=== PATIENT | female | born 1940 | race Caucasian/White ===

== ENCOUNTER → 2016-09-10 | Outpatient (CLI) | payer OTHER, BC ==
[~2016-09-10] MED LIST: ACET-24 PO; ALBUAER2 INH; ASPEC81 PO; ASPI81TA28 PO; ATV1 PO; CHOL100010 PO; CYAN10005 PO; FORMCAP INH; HYDR25TA4 PO; IBUP-1050 PO; LACT1CAP6 PO; LACTCHW5 PO; LISI40TA PO; MELATAB2 PO; METO25TA3 PO; MISCCAP80 PO; NRN300 PO; NRN600 PO; ONDA8TAB6 PO; OXYC-643 PO; OXYSR10 PO; RXC5 PO; SIMV20TA2 PO; SYN112 PO; VENL75CA PO; ZCR40 PO
[2016-09-10 17:08] LABS: BASO % 0.4 %; BASO ABS # 0.03 K/uL (0-0.2); COMPLETE YES; EOS % 1.1 %; HEMATOCRIT 36.9 % (37-47); IG% 0.2 %; LYMPH ABS # 2.38 K/uL (1.2-3.4); MEAN CELL VOLUME 90.9 fL (80-100); MEAN CORPUSCULAR HGB CONC 33.1 g/dl (32-36); MEAN PLATELET VOLUME 10.2 fL (7.4-10.4); MONO % 10.4 %; NEUT % 59.9 %; PLATELET COUNT 236 K/uL (130-400); RED BLOOD COUNT 4.06 M/uL (4.2-5.4); WHITE BLOOD COUNT 8.49 K/uL (4.8-10.8)
[2016-09-10 17:49] LABS: BLOOD UREA NITROGEN 30 mg/dl (7-18); BUN/CREATININE RATIO 33.3 (10-20); CARBON DIOXIDE 28 mmol/L (21-32); CHLORIDE 104 mmol/L (98-107); GLUCOSE 85 mg/dl (70-99); POTASSIUM 3.8 mmol/L (3.5-5.1); SODIUM 141 mmol/L (136-145)
== END | disposition home or self-care (01) ==
LOC: C.LABBC 14:02
PROVIDERS: ATTEND Internal Medicine Geriatric Medicine
DX: F32.9 Major depressive disorder, single episode, unspecified (principal); E03.9 Hypothyroidism, unspecified; I10 Essential (primary) hypertension; E55.9 Vitamin D deficiency, unspecified; E78.5 Hyperlipidemia, unspecified; D64.9 Anemia, unspecified; D47.2 Monoclonal gammopathy

== ENCOUNTER 2017-01-02 08:40 | Inpatient (IN) | payer OTHER, BC ==
[2016-12-25 13:27] VITALS: BMI 35.0
--- NOTE | 2016-12-25 14:00 | PAT Medication Instructions ---
Service Date Dec 25, 2016. Current Home Medication List Albuterol (Ventolin Hfa), 2 PUFFS INH BID PRN for SOB/Wheezing Aspirin (Aspirin Ec), 81 MG PO QAM Cholecalciferol (Vitamin D), 2,000 INTER.UNIT PO QAM Cyanocobalamin (Vitamin B-12), 1,000 MCG PO DAILY Formoterol Fumarate (Foradil Aerolizer), 1 PUFF INH BID PRN for Shortness of Breath Hydrochlorothiazide (Hctz), 12.5 MG PO QAM Ibuprofen (Advil), 600 MG PO Q6H PRN for RN Lactase (Lactaid), 1-3 TABS PO QAM Levothyroxine (Synthroid *), 112 MCG PO QAM Lisinopril (Zestril), 40 MG PO QAM Lorazepam (Ativan *), 0.5 MG PO DAILY PRN Melatonin (Melatonin Maximum Strengt), 1 TAB PO HS PRN for Sleep Metoprolol Succinate (Toprol Xl), 25 MG PO QAM Oxycodone/Acetaminophen 5MG/325MG (Oxycodone/Acetaminophen 5MG/325MG), 0.5-1 TAB PO DAILY PRN for Pain Probiotic Product (Probiotic), 1 TAB PO QAM Simvastatin (Zocor), 20 MG PO QPM Venlafaxine Hcl (Effexor Xr), 150 MG PO QAM Medication Instructions For Your Scheduled Surgery - Check with surgeon for instructions: Ibuprofen (Advil), 600 MG PO Q6H PRN for RN - Hold the following medications the morning of surgery: Probiotic Product (Probiotic), 1 TAB PO QAM Lisinopril (Zestril), 40 MG PO QAM Lactase (Lactaid), 1-3 TABS PO QAM Hydrochlorothiazide (Hctz), 12.5 MG PO QAM Cholecalciferol (Vitamin D), 2,000 INTER.UNIT PO QAM Cyanocobalamin (Vitamin B-12), 1,000 MCG PO DAILY - Take the following medications the morning of surgery with a sip of water: Venlafaxine Hcl (Effexor Xr), 150 MG PO QAM Metoprolol Succinate (Toprol Xl), 25 MG PO QAM Oxycodone/Acetaminophen 5MG/325MG (Oxycodone/Acetaminophen 5MG/325MG), 0.5-1 TAB PO DAILY PRN for Pain (okay to take up to 4 hours prior to surgery if needed ) Lorazepam (Ativan *), 0.5 MG PO DAILY PRN (if needed) Levothyroxine (Synthroid *), 112 MCG PO QAM Formoterol Fumarate (Foradil Aerolizer), 1 PUFF INH BID PRN for Shortness of Breath (if needed) Albuterol (Ventolin Hfa), 2 PUFFS INH BID PRN for SOB/Wheezing (if needed) Aspirin (Aspirin Ec), 81 MG PO QAM - Take the following medications as scheduled the night before surgery: Simvastatin (Zocor), 20 MG PO QPM Oxycodone/Acetaminophen 5MG/325MG (Oxycodone/Acetaminophen 5MG/325MG), 0.5-1 TAB PO DAILY PRN for Pain (if needed) Melatonin (Melatonin Maximum Strengt), 1 TAB PO HS PRN for Sleep (if needed) Lorazepam (Ativan *), 0.5 MG PO DAILY PRN Formoterol Fumarate (Foradil Aerolizer), 1 PUFF INH BID PRN for Shortness of Breath (if needed) Albuterol (Ventolin Hfa), 2 PUFFS INH BID PRN for SOB/Wheezing (if needed) If you have any questions please call us at [phone] or [phone] or [phone]
--- NOTE | 2016-12-25 14:48 | DIAGNOSTIC IMAGING REPORT ---
CHEST PREADMISSION(PA/LAT) CLINICAL HISTORY: PAT preoperative evaluation COMPARISON STUDY: 11/15/2014 FINDINGS: Aortic stent is again noted. Heart top limits normal terms of size. Lungs are clear. Diaphragms smooth. IMPRESSION: No acute process. The above report was generated using voice recognition software. It may contain grammatical, syntax or spelling errors. Electronically signed by: Aidan Aviles M.D. 12/25/2016 2:46 PM Dictated Date/Time: 12/25/2016 2:44 PM
[2016-12-25 14:50] LABS: BUN/CREATININE RATIO 25.9 (10-20); CALCIUM 9.6 mg/dl (8.5-10.1); CREATININE 0.95 mg/dl (0.60-1.20); POTASSIUM 3.9 mmol/L (3.5-5.1)
[2016-12-25 14:51] LABS: BASO % 0.5 %; BASO ABS # 0.03 K/uL (0-0.2); COMPLETE YES; HEMATOCRIT 37.8 % (37-47); IG% 0.2 %; LYMPH % 25.4 %; LYMPH ABS # 1.56 K/uL (1.2-3.4); MEAN CELL VOLUME 92.9 fL (80-100); MEAN CORPUSCULAR HEMOGLOBIN 30.2 pg (25-34); MEAN CORPUSCULAR HGB CONC 32.5 g/dl (32-36); MONO % 7.3 %; NEUT % 65.6 %; PLATELET COUNT 214 K/uL (130-400); RED BLOOD COUNT 4.07 M/uL (4.2-5.4); WHITE BLOOD COUNT 6.13 K/uL (4.8-10.8)
[2016-12-25 14:53] LABS: PROTHROMBIN TIME (PATIENT) 10.7 SECONDS (9.0-12.0)
[2016-12-25 15:00] LABS: URINE APPEARANCE CLEAR (CLEAR); URINE BILIRUBIN NEG (NEG); URINE COLOR YELLOW; URINE NITRITE NEG (NEG); URINE PH 6.5 (4.5-7.5); URINE SPECIFIC GRAVITY 1.021 (1.000-1.030); UROBILINOGEN NEG (NEG); ZZUR CULT IF INDIC CLEAN CATCH NO
[2016-12-25 15:02] LABS: MANUAL MICROSCOPIC REQUIRED? NO; REVIEW REQ? NO
[2016-12-26 07:32] LABS: ESTIMATED AVERAGE GLUCOSE 126 mg/dl; HA1C FLAG Normal (Normal)
--- NOTE | 2017-01-01 20:14 | HISTORY & PHYSICAL EXAMINATION ---
DATE OF ADMISSION: 01/02/2017 CHIEF COMPLAINT: Right knee pain. HISTORY OF PRESENT ILLNESS: This is a 76-year-old female patient of Dr. Najera'gilbert complaining of chronic right knee pain, longstanding and now progressively getting worse. She has been diagnosed with end-stage osteoarthritis per clinical and radiographic exams. The patient has failed conservative treatment including intra-articular injections, the use of narcotics, anti-inflammatories, the use of cane and a walker. The patient has increased pain with weightbearing activities and her pain does interfere with her activities of daily living. PAST MEDICAL HISTORY: Irregular heartbeat, history of an aneurysm 7 years ago, osteoarthritis and dentures. SOCIAL HISTORY: She is a 2-pack per day smoker for 7 years. Nondrinker. PAST SURGICAL HISTORY: Hiatal hernia and aneurysm surgery. FAMILY HISTORY: Noncontributory. REVIEW OF SYSTEMS: The patient complains of chronic right knee pain. Otherwise denies any shortness of breath, chest pain, nausea, vomiting or any other joint complaints. ALLERGIES: No known drug allergies. MEDICATIONS: 1. Lorazepam 1 mg daily as needed. 2. Aspirin 81 mg daily. 3. Probiotic formula daily. 4. Foradil aerolizer 12 mcg inhalation every 12 hours. 5. Gabapentin 100 mg t.i.d. 6. Hydrochlorothiazide 25 mg 1/2 tablet daily. 7. Lactaid once daily. 8. Levothyroxine 112 mcg daily. 9. Lisinopril 40 mg daily. 10. Metoprolol 25 mg daily. 11. Naprosyn 440 mg daily p.r.n. 12. Simvastatin 20 mg at bedtime. 13. Valtrex 1 gram orally as needed per instruction. 14. Effexor 75 mg daily. PHYSICAL EXAMINATION: GENERAL: Well-developed and well-nourished 76-year-old female in no acute distress. She is alert and oriented x3 and pleasant. HEENT: Normocephalic and atraumatic. Extraocular motions are intact. Pupils are equal and reactive to light. HEART: Regular rate and rhythm, no murmurs appreciated. LUNGS: Clear. ABDOMEN: Soft and nontender. Bowel sounds present. EXTREMITIES: Right knee reveals mild effusion. She has limited range of motion of 0-125 degrees. Her ligaments are stable. She has medial joint line tenderness. She has crepitation with passive range of motion. She has 5/5 strength. NEUROLOGIC: Neurovascularly, she is intact in her right lower extremity. DIAGNOSES: Right knee end-stage osteoarthritis with a history of irregular heartbeat, aneurysms 7 years ago and dentures. PLAN: The patient was advised of her diagnoses. Indications, risks, benefits and postoperative course have all been reviewed. The patient wishes to proceed with a right total knee arthroplasty. Necessary consent forms, preoperative testing and clearances will be obtained. MARY
[2017-01-02] VITALS (8 sets, daily range): BP systolic 100–168; BP diastolic 47–88; PULSE 81–89; TEMP 36.2–36.7; O2SAT 93–99; Ht 162.6 cm; Wt 92.1 kg
[~2017-01-02] VITALS: Ht 162.6 cm; Wt 92.1 kg
[~2017-01-02 08:40] MED LIST changes: -ACET-24 PO; +ACETAMINOPHEN 500 MG TAB PO SCH; -ASPEC81 PO; +ATROPINE SULFATE 0.1 MG/ML 5ML SYR IV PRN; +BUPIVACAINE 0.25% 30 ML VIAL ONE; +BUPIVACAINE 0.5 % 5 MG/1 ML PF 10ML VIAL ONE; +CEFAZOLIN 2000 MG/60 ML D5W 60 ML IV SCH; +CeleBREX 200 MG CAP PO SCH; +DEXAMETHASONE 4 MG TAB PO SCH; +EpHEDrine SULFATE INJ 50 MG/ML AMP IV PRN; +FAMOTIDINE 20 MG TAB PO SCH; +GABAPENTIN 300 MG CAP PO SCH; -LACT1CAP6 PO; +LACTATED RINGER'S 1000ML 1,000 ML IV SCH; +LACTATED RINGER'S 1000ML 500 ML IV ONE; +LACTATED RINGER'S 1000ML IV SCH; +METOCLOPRAMIDE HCL 10 MG TAB PO SCH; -NRN300 PO; -NRN600 PO; -ONDA8TAB6 PO; -OXYSR10 PO; +ROPIVACAINE 5MG/ML 30 ML 150 MG, BUPIVACAINE/EPINEPHR 0.5% MPF 30 ML, KETOROLAC TROMETH... INFIL SCH; -RXC5 PO; -ZCR40 PO
[2017-01-02] MEDS ORDERED: MIDAZOLAM HCL 1 MG/ML 2ML VIAL ONE ×2 (10:14)
[2017-01-02] MEDS ORDERED: FENTANYL CITRATE INJ 50 MCG/1 ML 2 ML VIAL ONE (10:14)
[2017-01-02] MEDS ORDERED: POVIDONE-IODINE OP SOLN 30 ML BTL ONE (10:47)
[2017-01-02] MEDS ORDERED: BACITRACIN 50000 UNIT VIAL ONE (10:47)
[2017-01-02] MEDS ORDERED: ORTHO JOINT ANESTHETIC ONE (10:47)
--- NOTE | 2017-01-02 12:01 | History & Physical Bridge Note ---
H&P Re-Evaluation Bridge Note: I have examined the patient, reviewed the History & Physical and in the interval since the performance of the History & Physical I have noted the following changes of clinical significance: No changes noted
[2017-01-02] MEDS ORDERED: PROPOFOL IV EMULSION 10 MG/ML 20 ML VIAL IV ONE (12:27)
[2017-01-02] MEDS ORDERED: LIDOCAINE HCL 2% 2 ML VIAL (20MG/ML) ONE (12:27)
--- NOTE | 2017-01-02 13:49 | [facility] Post Operative Brief Note ---
Immediate Operative Summary Operative Date Jan 02, 2017. Pre-Operative Diagnosis Right Knee End-Stage Osteoarthritis Post-Operative Diagnosis Right Knee End-Stage Osteoarthritis Procedure(s) Performed Right Total Knee Arthroplasty Surgeon Dr. Najera Research Programmer Surgeon(s) TROY Govea Estimated Blood Loss 5 ml Findings grade 4 djd medial and lateral compartments Specimens A. Right Knee Bone and Tissue Drains 2 hemovac Anesthesia spinal orthomix regional Complication(s) None Disposition Recovery Room / PACU
[2017-01-02] MEDS ORDERED: SOD PHOSPHATE/SOD BIPHOSPHATE ENEMA 132 ML BTL PR PRN (14:15)
[2017-01-02] MEDS ORDERED: MoRPHine SULFATE 2 MG/ML CARP IV PRN (14:15)
[2017-01-02] MEDS ORDERED: MAGNESIUM HYDROXIDE SUSP 30 ML UDC PO PRN (14:15)
[2017-01-02] MEDS ORDERED: ZOLPIDEM TARTRATE 5 MG TAB PO PRN (14:15)
[2017-01-02] MEDS ORDERED: BISACODYL 10 MG SUPP PR PRN (14:15)
[2017-01-02] MEDS ORDERED: LORAZEPAM 1 MG TAB PO PRN (14:15)
[2017-01-02] MEDS ORDERED: ALBUTEROL HFA 8 GM INHALER INH PRN (14:15)
[2017-01-02] MEDS ORDERED: NON-FORMULARY MEDICATION (Melatonin (Melatonin Maximum Strengt) 1 TAB) PO PRN (14:15)
--- NOTE | 2017-01-02 14:40 | DIAGNOSTIC IMAGING REPORT ---
TWO VIEWS RIGHT KNEE CLINICAL HISTORY: Postoperative examination. FINDINGS: AP and crosstable lateral portable views of the right knee are obtained. A right knee arthroplasty is in near anatomic alignment. There has been undersurface remodeling of the patella. No acute fracture is seen. There are expected postoperative changes around the knee including skin clips, a surgical drain, soft tissue edema, and subcutaneous gas. IMPRESSION: Expected postoperative changes status post right knee arthroplasty. No acute fracture is seen. Electronically signed by: Dov An M.D. 01/02/2017 2:39 PM Dictated Date/Time: 01/02/2017 2:38 PM
[2017-01-02] MEDS ORDERED: MoRPHine SULFATE 4 MG/ML 1 ML CARP\\VIAL IV PRN (15:00)
--- NOTE | 2017-01-02 15:43 | Anesthesiology Progress Note ---
Anesthesia Post Op Note Date & Time Jan 02, 2017 at 15:43 Vital Signs Pain Intensity: 0 Vital Signs Past 12 Hours Date Time Temp Pulse Resp B/P (MAP) Pulse Ox O2 Delivery O2 Flow Rate FiO2 01/02/17 15:20 36.3 81 18 166/81 (109) 97 Nasal Cannula 2.0 01/02/17 15:00 37 81 16 143/80 98 Nasal Cannula 3 01/02/17 14:50 37 77 16 145/69 95 Nasal Cannula 3 01/02/17 14:35 37 81 16 164/66 95 Nasal Cannula 3 01/02/17 14:25 85 16 153/77 95 Nasal Cannula 3 01/02/17 14:15 84 16 161/87 99 Mask 10 01/02/17 14:07 37.2 89 16 162/80 99 Mask 10 01/02/17 09:33 36.5 89 20 149/73 93 Notes Mental Status: alert / awake / arousable, participated in evaluation Pt Amnestic to Procedure: Yes Nausea / Vomiting: adequately controlled Pain: adequately controlled Airway Patency, RR, SpO2: stable & adequate BP & HR: stable & adequate Hydration State: stable & adequate Neuraxial Anesthesia: was administered, sensory block is resolving Anesthetic Complications: no major complications apparent
[2017-01-02] MEDS: D5W AND 1/2NSS + 20MEQ KCL 1,000 ML IV SCH (16:34)
--- NOTE | 2017-01-02 18:44 | Medical Student: [facility] ---
Consultation Date of Consultation: Jan 02, 2017. Requesting Physician: Dr. Najera Attending Physician: Dr. Kraus Reason for Consultation: Post-op medical management History of Present Illness 1. Lorazepam 1 mg daily as needed. 2. Aspirin 81 mg daily. 3. Probiotic formula daily. 4. Foradil aerolizer 12 mcg inhalation every 12 hours. 5. Gabapentin 100 mg t.i.d. 6. Hydrochlorothiazide 25 mg 1/2 tablet daily. 7. Lactaid once daily. 8. Levothyroxine 112 mcg daily. 9. Lisinopril 40 mg daily. 10. Metoprolol 25 mg daily. 11. Naprosyn 440 mg daily p.r.n. 12. Simvastatin 20 mg at bedtime. 13. Valtrex 1 gram orally as needed per instruction. 14. Effexor 75 mg daily. Social History Smoking Status: Current Every Day Smoker (2ppd x 7years) History of Alcohol Use: No Drug Use: none Marital Status: Housing Status: lives with family Occupation Status: retired Allergies Coded Allergies: Bacitracin (Verified Allergy, Unknown, IRITATION TO EARS, 01/02/17) Varenicline (Verified Adverse Reaction, Severe, DEPRESSION, 01/02/17) PT SAYS THERE IS NOT ALLERGY Atorvastatin (Verified Adverse Reaction, Intermediate, MYALGIA, 01/02/17) PT SAYS THERE IS NOT ALLERGY Medications Current Inpatient Medications Medications (Trade) Dose Ordered Sig/Ky Route Start Time Stop Time Status Last Admin Dose Admin Lactated Ringer's 1,000 ml @ 60 mls/hr [id number] IV 01/02/17 06:00 01/02/17 22:39 Lactated Ringer's 1,000 ml @ 15 mls/hr Q24H IV 01/02/17 06:00 01/03/17 05:59 01/02/17 10:07 15 MLS/HR Ondansetron HCl (Zofran Inj) 4 mg ONE PRN IV 01/02/17 07:00 Albuterol (Ventolin Hfa Inhaler) 2 puffs BID PRN INH 01/02/17 14:15 02/01/17 14:14 Cholecalciferol (Vitamin D Tab) 2,000 inter.unit QAM PO 01/03/17 09:00 02/02/17 08:59 Cyanocobalamin (Vitamin B-12 Tab) 1,000 mcg DAILY PO 01/03/17 09:00 02/02/17 08:59 Hydrochlorothiazide (Hydrochlorothiazide Tab) 12.5 mg QAM PO 01/03/17 09:00 02/02/17 08:59 Levothyroxine Sodium (Synthroid Tab) 112 mcg DAILYBB PO 01/03/17 06:00 02/02/17 05:59 Lisinopril (Zestril Tab) 40 mg QAM PO 01/03/17 09:00 02/02/17 08:59 Lorazepam (Ativan Tab) 0.5 mg DAILY PRN PO 01/02/17 14:15 02/01/17 14:14 Metoprolol Succinate (Toprol Xl Tab) 25 mg QAM PO 01/03/17 09:00 02/02/17 08:59 Simvastatin (Zocor Tab) 20 mg QPM PO 01/02/17 21:00 02/01/17 20:59 Venlafaxine HCl (effeXOR EXTENDED REL CAP) 150 mg QAM PO 01/03/17 09:00 02/02/17 08:59 Miscellaneous Information (Order Awaiting Action) 1 ea QS N/A 01/02/17 16:00 02/01/17 15:59 Lactase (Lactaid Tab) 1-3 QAM PRN PO 01/03/17 09:00 02/02/17 08:59 Lactobacillus Acidophilus (Floranex Tab) 1 tab QAM PO 01/03/17 09:00 02/02/17 08:59 Potassium Chloride/Dextrose/ Sod Cl 1,000 ml @ 100 mls/hr Q10H IV 01/02/17 15:45 01/03/17 15:44 01/02/17 16:34 100 MLS/HR Oxycodone HCl (Roxicodone Immediate Rel Tab) 5 mg Q4H PRN PO 01/02/17 14:15 01/16/17 14:14 Oxycodone HCl (Oxycontin Tab) 10 mg Q12 PO 01/02/17 21:00 01/16/17 20:59 Morphine Sulfate (MoRPHine SULFATE INJ) 2 mg Q2H PRN IV 01/02/17 14:15 01/16/17 14:14 Acetaminophen (Tylenol Tab) 1,000 mg Q8 PO 01/02/17 22:00 02/01/17 21:59 Magnesium Hydroxide (Milk Of Magnesia Susp) 30 ml Q6H PRN PO 01/02/17 14:15 02/01/17 14:14 Bisacodyl (Dulcolax Supp) 10 mg DAILY PRN MD 01/02/17 14:15 02/01/17 14:14 Sodium Biphosphate/ Sodium Phosphate (Fleet Enema) 132 ml DAILY PRN MD 01/02/17 14:15 02/01/17 14:14 Docusate Sodium (coLACE CAP) 100 mg BID PO 01/02/17 21:00 02/01/17 20:59 Diphenhydramine HCl (Benadryl Cap) 25 mg Q8H PRN PO 01/02/17 14:15 02/01/17 14:14 Zolpidem Tartrate (Ambien Tab) 5 mg HSZ PRN PO 01/02/17 14:15 02/01/17 14:14 Multivitamins (Multivitamin Tab) 1 tab QAM PO 01/03/17 09:00 02/02/17 08:59 Ondansetron HCl (Zofran Inj) 4 mg Q6H PRN IV 01/02/17 14:15 02/01/17 14:14 Pantoprazole Sodium (Protonix Tab) 40 mg QAM PO 01/03/17 09:00 02/02/17 08:59 Tramadol HCl (Ultram Tab) 1 tablet for pain rating... Q4H PRN PO 01/02/17 14:15 02/01/17 14:14 Aspirin (Ecotrin Tab) 81 mg BID PO 01/02/17 21:00 02/01/17 20:59 Oxycodone HCl (Roxicodone Immediate Rel Tab) 10 mg Q4H PRN PO 01/02/17 14:45 01/16/17 14:44 Morphine Sulfate (MoRPHine SULFATE INJ) 4 mg Q2H PRN IV 01/02/17 15:00 01/16/17 14:59 Physical Exam Date Time Temp Pulse Resp B/P (MAP) Pulse Ox O2 Delivery O2 Flow Rate FiO2 01/02/17 18:24 36.2 88 17 112/73 (86) 99 Nasal Cannula 2.0 01/02/17 17:20 36.4 85 18 124/70 (88) 98 Nasal Cannula 2.0 01/02/17 16:58 Nasal Cannula 2.0 01/02/17 16:43 Nasal Cannula 2.0 01/02/17 16:25 36.6 86 17 160/88 (112) 96 Nasal Cannula 2.0 01/02/17 15:53 36.7 81 17 168/48 (88) 98 Nasal Cannula 2.0 01/02/17 15:20 36.3 81 18 166/81 (109) 97 Nasal Cannula 2.0 01/02/17 15:00 37 81 16 143/80 98 Nasal Cannula 3 01/02/17 14:50 37 77 16 145/69 95 Nasal Cannula 3 01/02/17 14:35 37 81 16 164/66 95 Nasal Cannula 3 01/02/17 14:25 85 16 153/77 95 Nasal Cannula 3 01/02/17 14:15 84 16 161/87 99 Mask 10 01/02/17 14:07 37.2 89 16 162/80 99 Mask 10 01/02/17 09:33 36.5 89 20 149/73 93
[2017-01-02] MEDS ORDERED: LORAZEPAM 0.5 MG TAB PO STA (20:20)
--- NOTE | 2017-01-02 20:20 | Medical Consult ---
Consultation Date of Consultation: Jan 02, 2017. Attending Physician: Prem Najera M.D. Reason for Consultation: Post op med mx History of Present Illness Mrs Pimentel is a 76 yo F with anxiety, HTN, and known AAA (previously repaired in [facility]) , who is day 0 s/p R TKA with Dr Najera. She denies any pain or concerns but is very anxious at the moment about her pain returning. She reports for anxiety she usually takes 1mg PO Ativan every week or so, and that Ambien gives her hallucinations. She is on Venlafaxine daily for anxiety. She denies any shortness of breath, chest pain, or palpitations. Past Medical/Surgical History Medical Problems: (1) Degenerative joint disease Status: Acute (2) Fractured fibula Status: Acute (3) Toe fracture Status: Acute Family History Gallbladder disease Heart disease Hypertension Kidney disease Kidney stones Social History Smoking Status: Former Smoker (Stopped after AAA repair, previously smoked 50 y ) Drug Use: none Marital Status: Housing Status: lives with family Occupation Status: retired Allergies Coded Allergies: Bacitracin (Verified Allergy, Unknown, IRITATION TO EARS, 01/02/17) Varenicline (Verified Adverse Reaction, Severe, DEPRESSION, 01/02/17) PT SAYS THERE IS NOT ALLERGY Atorvastatin (Verified Adverse Reaction, Intermediate, MYALGIA, 01/02/17) PT SAYS THERE IS NOT ALLERGY Home Medications Reported Home Medications Medications Dose Route/Sig Max Daily Dose Days Date Category Dose Instructions Zocor (Simvastatin) 20 Mg Tab 20 Mg PO QPM 12/25/16 Reported Advil (Ibuprofen) 200 Mg Tab 600 Mg PO Q6H PRN 12/25/16 Reported Probiotic (Probiotic Product) 1 Cap Cap 1 Tab PO QAM 12/25/16 Reported Vitamin D (Cholecalciferol) 1,000 Inter.unit Tab 2,000 Inter.unit PO QAM 10/09/15 Reported Vitamin B-12 (Cyanocobalamin) 1,000 Mcg Tab 1,000 Mcg PO DAILY 10/09/15 Reported TAKES ON OCC Oxycodone/Acetaminophen 5MG/325MG (Oxycodone/Acetaminophen) 1 Tab Tab 0.5-1 Tab PO DAILY PRN 09/27/15 Reported Lactaid (Lactase) 4,500 Unit Chw 1-3 Tabs PO QAM 09/27/15 Reported chew and swallow 1-3 tabs with first bite of milk food Ventolin Hfa (Albuterol) Aers 2 Puffs INH BID PRN 09/27/15 Reported Melatonin Maximum Strengt (Melatonin) 5 Mg Tab 1 Tab PO HS PRN 09/27/15 Reported Effexor Xr (Venlafaxine Hcl) 75 Mg Cap 150 Mg PO QAM 30 08/24/15 Reported Aspirin Ec (Aspirin) 81 Mg Tab 81 Mg PO QAM 08/24/15 Reported Hctz (Hydrochlorothiazide) 25 Mg Tab 12.5 Mg PO QAM 03/27/14 Reported Foradil Aerolizer (Formoterol Fumarate) Cap 1 Puff INH BID PRN 03/27/14 Reported Toprol Xl (Metoprolol Succinate) 25 Mg Tabcr 25 Mg PO QAM 01/26/12 Reported Ativan * (Lorazepam) 1 Mg Tab 0.5 Mg PO DAILY PRN 03/15/11 Reported Synthroid * (Levothyroxine Sodium) 0.112 Mg Tab 112 Mcg PO QAM 03/15/11 Reported Zestril (Lisinopril) 40 Mg Tab 40 Mg PO QAM 09/16/09 Reported Current Inpatient Medications Current Inpatient Medications Medications (Trade) Dose Ordered Sig/Ky Route Start Time Stop Time Status Last Admin Dose Admin Lactated Ringer's 1,000 ml @ 60 mls/hr [id number] IV 01/02/17 06:00 01/02/17 22:39 Lactated Ringer's 1,000 ml @ 15 mls/hr Q24H IV 01/02/17 06:00 01/03/17 05:59 01/02/17 10:07 15 MLS/HR Ondansetron HCl (Zofran Inj) 4 mg ONE PRN IV 01/02/17 07:00 Albuterol (Ventolin Hfa Inhaler) 2 puffs BID PRN INH 01/02/17 14:15 02/01/17 14:14 Cholecalciferol (Vitamin D Tab) 2,000 inter.unit QAM PO 01/03/17 09:00 02/02/17 08:59 Cyanocobalamin (Vitamin B-12 Tab) 1,000 mcg DAILY PO 01/03/17 09:00 02/02/17 08:59 Hydrochlorothiazide (Hydrochlorothiazide Tab) 12.5 mg QAM PO 01/03/17 09:00 02/02/17 08:59 Levothyroxine Sodium (Synthroid Tab) 112 mcg DAILYBB PO 01/03/17 06:00 02/02/17 05:59 Lisinopril (Zestril Tab) 40 mg QAM PO 01/03/17 09:00 02/02/17 08:59 Lorazepam (Ativan Tab) 0.5 mg DAILY PRN PO 01/02/17 14:15 02/01/17 14:14 Metoprolol Succinate (Toprol Xl Tab) 25 mg QAM PO 01/03/17 09:00 02/02/17 08:59 Simvastatin (Zocor Tab) 20 mg QPM PO 01/02/17 21:00 02/01/17 20:59 Venlafaxine HCl (effeXOR EXTENDED REL CAP) 150 mg QAM PO 01/03/17 09:00 02/02/17 08:59 Miscellaneous Information (Order Awaiting Action) 1 ea QS N/A 01/02/17 16:00 02/01/17 15:59 Lactase (Lactaid Tab) 1-3 QAM PRN PO 01/03/17 09:00 02/02/17 08:59 Lactobacillus Acidophilus (Floranex Tab) 1 tab QAM PO 01/03/17 09:00 02/02/17 08:59 Potassium Chloride/Dextrose/ Sod Cl 1,000 ml @ 100 mls/hr Q10H IV 01/02/17 15:45 01/03/17 15:44 01/02/17 16:34 100 MLS/HR Oxycodone HCl (Roxicodone Immediate Rel Tab) 5 mg Q4H PRN PO 01/02/17 14:15 01/16/17 14:14 Oxycodone HCl (Oxycontin Tab) 10 mg Q12 PO 01/02/17 21:00 01/16/17 20:59 Morphine Sulfate (MoRPHine SULFATE INJ) 2 mg Q2H PRN IV 01/02/17 14:15 01/16/17 14:14 Acetaminophen (Tylenol Tab) 1,000 mg Q8 PO 01/02/17 22:00 02/01/17 21:59 Magnesium Hydroxide (Milk Of Magnesia Susp) 30 ml Q6H PRN PO 01/02/17 14:15 02/01/17 14:14 Bisacodyl (Dulcolax Supp) 10 mg DAILY PRN [place] 01/02/17 14:15 02/01/17 14:14 Sodium Biphosphate/ Sodium Phosphate (Fleet Enema) 132 ml DAILY PRN [place] 01/02/17 14:15 02/01/17 14:14 Docusate Sodium (coLACE CAP) 100 mg BID PO 01/02/17 21:00 02/01/17 20:59 Diphenhydramine HCl (Benadryl Cap) 25 mg Q8H PRN PO 01/02/17 14:15 02/01/17 14:14 Zolpidem Tartrate (Ambien Tab) 5 mg HSZ PRN PO 01/02/17 14:15 02/01/17 14:14 Multivitamins (Multivitamin Tab) 1 tab QAM PO 01/03/17 09:00 02/02/17 08:59 Ondansetron HCl (Zofran Inj) 4 mg Q6H PRN IV 01/02/17 14:15 02/01/17 14:14 Pantoprazole Sodium (Protonix Tab) 40 mg QAM PO 01/03/17 09:00 02/02/17 08:59 Tramadol HCl (Ultram Tab) 1 tablet for pain rating... Q4H PRN PO 01/02/17 14:15 02/01/17 14:14 Aspirin (Ecotrin Tab) 81 mg BID PO 01/02/17 21:00 02/01/17 20:59 Oxycodone HCl (Roxicodone Immediate Rel Tab) 10 mg Q4H PRN PO 01/02/17 14:45 01/16/17 14:44 Morphine Sulfate (MoRPHine SULFATE INJ) 4 mg Q2H PRN IV 01/02/17 15:00 01/16/17 14:59 Review of Systems See HPI for pertinent positives & negatives. A total of 10 systems reviewed and were otherwise negative. Physical Exam Date Time Temp Pulse Resp B/P (MAP) Pulse Ox O2 Delivery O2 Flow Rate FiO2 01/02/17 19:25 36.5 85 18 100/61 (74) 94 Room Air 01/02/17 18:24 36.2 88 17 112/73 (86) 99 Nasal Cannula 2.0 01/02/17 17:20 36.4 85 18 124/70 (88) 98 Nasal Cannula 2.0 01/02/17 16:58 Nasal Cannula 2.0 01/02/17 16:43 Nasal Cannula 2.0 01/02/17 16:25 36.6 86 17 160/88 (112) 96 Nasal Cannula 2.0 01/02/17 15:53 36.7 81 17 168/48 (88) 98 Nasal Cannula 2.0 01/02/17 15:20 36.3 81 18 166/81 (109) 97 Nasal Cannula 2.0 01/02/17 15:00 37 81 16 143/80 98 Nasal Cannula 3 01/02/17 14:50 37 77 16 145/69 95 Nasal Cannula 3 01/02/17 14:35 37 81 16 164/66 95 Nasal Cannula 3 01/02/17 14:25 85 16 153/77 95 Nasal Cannula 3 01/02/17 14:15 84 16 161/87 99 Mask 10 01/02/17 14:07 37.2 89 16 162/80 99 Mask 10 01/02/17 09:33 36.5 89 20 149/73 93 General Appearance: WD/WN, + mild distress Head: normocephalic, atraumatic Eyes: normal inspection, PERRL ENT: hearing grossly normal Neck: supple, no JVD Respiratory/Chest: lungs clear, normal breath sounds, no respiratory distress Cardiovascular: regular rate, rhythm Abdomen/GI: soft Back: no CVA tenderness, no muscle spasm Extremities/Musculoskelatal: no calf tenderness, no pedal edema Neurologic/Psych: alert, normal mood/affect, oriented x 3 Skin: no rash Assessment & Plan 76 yo F with HTN and anxiety, day 0 s/p R TKA. Hypertension: Agree w/restarting anti-hypertensives tomorrow AM. Her recent BP' s have been well controlled. Anxiety: Primary team has restarted Ativan 0.5mg daily for as needed use. Will provide her with 0.5mg PO now. Continue Venlafaxine. Pain Mx: Per primary team DVT Prophylaxis: Aspirin 81mg BID started by primary team. Thank you for allowing us to participate in the care of Mrs. Pimentel. We will continue to follow. Resident Physician Supervision Note: Pt seen/examined independently. I discussed the case with the resident and agree with the findings and plan as documented in the note. Any exceptions or clarifications are listed here: 76 y/o F Hx HTN, anxiety - post R TKA - we are consulted for post-op anxiety issues OE AAO x 3 S1,2 R CTAB NT, ND No CCE P: Anxiety - cont Ativan and Venlafaxine additional dose Ativan provided HTN - restart HTN meds AM Documented By: Jaylen Saavedra Resident Tracking Resident Involvement: Resident Care Provided Care Provided: Adult [facility]
[2017-01-02] MEDS: DOCUSATE SODIUM 100 MG CAP PO SCH (20:49)
[2017-01-02] MEDS: OXYCODONE HCL 10 MG TABCR (OXYCONTIN) PO SCH (20:49)
[2017-01-02] MEDS: ASPIRIN 81 MG ECTAB PO SCH (20:50)
[2017-01-02] MEDS: SIMVASTATIN 20 MG TAB PO SCH (20:50)
[2017-01-02] MEDS: ACETAMINOPHEN 500 MG TAB PO SCH (22:22)
--- NOTE | 2017-01-03 00:20 | OPERATIVE REPORT ---
DATE OF OPERATION: 01/02/2017 HISTORY OF PRESENT ILLNESS: The patient is a 76-year-old female who presents with progressive unremitting pain in right knee but also has significant long-term pain in her left knee. She has had extensive conservative management. She was putting off any surgery on her knees due to other medical complications. She has been recently cleared to proceed with surgery. Her right knee is most symptomatic. Her radiographs demonstrate she has [id number] in medial compartment of both her knees with some tricompartment osteoarthritic changes in her right knee. Left knee appears to be more arthritic than her right knee, the right knee is more painful. PREOPERATIVE DIAGNOSIS: End-stage osteoarthritis, right knee. POSTOPERATIVE DIAGNOSIS: Same. PROCEDURE: Right total knee arthroplasty. SURGEON: Dr. Najera. RECREATION ACTIVITIES COORDINATOR: Aidan Jimenez PA-C. ANESTHESIA: Spinal sedation, adductor nerve block and Orthomix. OPERATIVE PROCEDURE: The patient was taken to the operating room and anesthetized under anesthesia as dictated. She was placed supine on the operating room table. Pneumatic tourniquet was placed about her right upper thigh. Right lower extremity was prepped and draped in sterile fashion. Her leg was elevated, exsanguinated with Esmarch bandage. Pneumatic tourniquet was raised to 300 mmHg. Exam demonstrates she had 0 through 125 degrees range of motion. No particular instability. A longitudinal incision was made across the anterior knee. Skin was incised sharply. Subcutaneous flaps were elevated. Incision was made into the medial retinaculum and extended up into the mid third of the quadriceps tendon and extended down to the medial tibial tubercle. Intraarticular findings demonstrated that she had tricompartmental DJD, but she was grade 4 lbtg-pa-[id number] in the lateral compartment, grade 4 [id number]-[id number] in the medial compartment. She had more of a varus knee. She also had some patellofemoral arthritis, grade 3. There was some bone loss in the medial compartment with flattening of the medial femoral condyle. The [place]! total knee arthroplasty system was used. To expose the knee, the infrapatellar fat pad was resected. The meniscal remnants were resected. The cruciate ligaments were resected. Fat pad over the anterior femur for placement of the component in that area was resected. Some of the lateral synovial bands were released. The femur was exposed. An intramedullary drill hole was made into the femoral canal. Guide jj was placed. Distal femoral cutting guide was adjusted to resect 10 mm of distal femur at 5-degree valgus cut. The femur was sized for a size 4 femoral component. She had a bit of an AP-ML mismatch, she was more of a 5 AP than a 4, but 5 would be oversized in medial lateral, so we chose to go with a 4. The cutting guide was externally rotated approximately 3 degrees of external rotation to match the epicondylar axis. Guide was pinned in position, and the anterior, posterior and chamfer cuts were made. Did have a minor notching of the anterior cortex to due to downsizing the femoral component. The 4-in-1 cutting block was used to make the anterior, posterior and chamfer cuts and then attention was taken to the patella. We did a subperiosteal peel lateral release around the patella. The patella width was measured and width was reproduced using a 3 tibia, 9 mm patellar component. All 3 drill holes were made for the component. The excess lateral facet was beveled off to prevent any impingement. Then, attention was taken to the tibia which was subluxed and the external tibial cutting guide was used to make a perpendicular cut to the long axis of the tibia. It was noted that she did have fairly significant osteoporosis. At this time, we used the lamina branch associate teller to assess ligamentous balance in extension and flexion, ligaments were balanced. Then, the tibia was exposed and the 3 primary tibial baseplate trial was externally rotated in line with the tibial tubercle, was pinned in position, the punch for stem was used. Then, the 4 notch cutting guide was centered and the notch cut was made. Then, the 4 femoral trial was inserted with a good fit. Then, we tried polyethylene trials and a 13 gave the best balance of ligaments through full range of motion and the patella was noted to track centrally. Trials were removed. The anesthetic Orthomix cocktail was injected per protocol. The knee was copiously irrigated with pulsatile lavage saline solution, no antibiotic used. The final components were then cemented with Simplex cement. Final components were the 4 Triathlon posterior stabilized right femoral component, the 3 primary Triathlon baseplate, the 3 x 13 mm X3 poly insert, posterior stabilized, and the S33 x 9 mm X3 poly patella. All excess cement was cleared. Knee was kept in extension until the cement had hardened. Betadine soak was used per protocol at this time. Then, this was irrigated out with normal saline solution. Two Hemovac drains were placed. The quadriceps tendon and medial retinaculum were closed with interrupted [id number] #1 Vicryl sutures. The subcutaneous tissues were then closed with interrupted 2-0 Vicryl, skin closed with hollie, and a superficial wound VAC was placed. Aidan Jimenez PA-C, was my assistant football coach, he functioned as assistant football coach for the entire procedure. He assisted in soft tissue retraction, instrument management and assisted in the closure and will participate in postoperative care of the patient. I attest to the content of the Intraoperative Record and any orders documented therein. Any exception s are noted below.
[2017-01-03] MEDS: OXYCODONE HCL IR 5 MG TAB (IMMEDIATE RELEASE) PO PRN ×4 (01:27→20:47)
[2017-01-03] MEDS: D5W AND 1/2NSS + 20MEQ KCL 1,000 ML IV SCH ×2 (01:27→12:50)
[2017-01-03 03:33] VITALS: BP 110/66; PULSE 88; TEMP 36.6; O2SAT 93
[2017-01-03] MEDS: TRAMADOL HCL 50 MG TAB PO PRN (04:08)
[2017-01-03] MEDS: ACETAMINOPHEN 500 MG TAB PO SCH ×3 (05:56→21:26)
[2017-01-03] MEDS: LEVOTHYROXINE 112 MCG TAB PO SCH (05:56)
[2017-01-03 06:03] LABS: HEMATOCRIT 27.4 % (37-47); MEAN CELL VOLUME 93.5 fL (80-100); MEAN CORPUSCULAR HEMOGLOBIN 29.4 pg (25-34); MEAN CORPUSCULAR HGB CONC 31.4 g/dl (32-36); MEAN PLATELET VOLUME 9.3 fL (7.4-10.4); PLATELET COUNT 166 K/uL (130-400); RED BLOOD COUNT 2.93 M/uL (4.2-5.4); WHITE BLOOD COUNT 9.62 K/uL (4.8-10.8)
[2017-01-03 06:43] LABS: BUN/CREATININE RATIO 30.6 (10-20); CALCIUM 8.1 mg/dl (8.5-10.1); CREATININE 0.93 mg/dl (0.60-1.20); POTASSIUM 4.1 mmol/L (3.5-5.1)
[2017-01-03 07:27] VITALS: BP 108/66; PULSE 86; TEMP 36.7; O2SAT 93
--- NOTE | 2017-01-03 08:14 | Orthopedic Progress Note ---
Orthopedic Progress Note Date of Service Jan 03, 2017. Subjective Post OP Day: 1 Reports: feeling well, pain controlled w PO medications, Denies: complaints, chest pain, SOB, nausea / vomiting, light headedness, calf pain Additional Notes: Hgb 8.6 Objective calves soft nontender, N/V intact, capillary refill less than 2 sec., dressing C /D/I, A&O x3, toes mobile Date Time Temp Pulse Resp B/P (MAP) Pulse Ox O2 Delivery O2 Flow Rate FiO2 01/03/17 07:27 36.7 86 17 108/66 (80) 93 Room Air 01/03/17 07:20 Room Air 01/03/17 03:33 36.6 88 16 110/66 (81) 93 Room Air 01/02/17 23:30 Room Air 01/02/17 23:12 36.6 84 16 125/47 (73) 94 Room Air 01/02/17 19:25 36.5 85 18 100/61 (74) 94 Room Air 01/02/17 18:24 36.2 88 17 112/73 (86) 99 Nasal Cannula 2.0 01/02/17 17:20 36.4 85 18 124/70 (88) 98 Nasal Cannula 2.0 01/02/17 16:58 Nasal Cannula 2.0 01/02/17 16:43 Nasal Cannula 2.0 01/02/17 16:25 36.6 86 17 160/88 (112) 96 Nasal Cannula 2.0 01/02/17 15:53 36.7 81 17 168/48 (88) 98 Nasal Cannula 2.0 01/02/17 15:20 36.3 81 18 166/81 (109) 97 Nasal Cannula 2.0 01/02/17 15:00 37 81 16 143/80 98 Nasal Cannula 3 01/02/17 14:50 37 77 16 145/69 95 Nasal Cannula 3 01/02/17 14:35 37 81 16 164/66 95 Nasal Cannula 3 01/02/17 14:25 85 16 153/77 95 Nasal Cannula 3 01/02/17 14:15 84 16 161/87 99 Mask 10 01/02/17 14:07 37.2 89 16 162/80 99 Mask 10 01/02/17 09:33 36.5 89 20 149/73 93 Laboratory Results 24 Hours: Test 01/03/17 05:43 Hematocrit 27.4 % Hemoglobin 8.6 g/dL Assessment & Plan Assessment: POD #1, Rt TKA Plan: PT/ OT DVT proph- ASA D/C plans- OPPT As per medicine Inhouse Planning Pain Management: Oxycontin, Morphine, PO Tylenol, Oxy IR DVT Prophylaxis: TEDs, SCDs, ASA Discharge Planning Discharge Planning: home with oppt Pain Management: Oxycontin, PO Tylenol, Oxy IR DVT Prophylaxis: TEDs, ASA Therapy: Physical Therapy, Occupational Therapy
--- NOTE | 2017-01-03 08:28 | Anesthesiology Progress Note ---
Anesthesia Post Op Note Date & Time Jan 03, 2017 at 08:28 Vital Signs Pain Intensity: 3 Vital Signs Past 12 Hours Date Time Temp Pulse Resp B/P (MAP) Pulse Ox O2 Delivery O2 Flow Rate FiO2 01/03/17 07:27 36.7 86 17 108/66 (80) 93 Room Air 01/03/17 07:20 Room Air 01/03/17 03:33 36.6 88 16 110/66 (81) 93 Room Air 01/02/17 23:30 Room Air 01/02/17 23:12 36.6 84 16 125/47 (73) 94 Room Air Notes Mental Status: alert / awake / arousable Pt Amnestic to Procedure: Yes Pain: adequately controlled Airway Patency, RR, SpO2: stable & adequate BP & HR: stable & adequate Hydration State: stable & adequate Neuraxial Anesthesia: sensory block resolved
--- NOTE | 2017-01-03 08:37 | Clinical Documentation Query ---
CLINICAL DOCUMENTATION QUERY 76-y/o female who has undergone cemented right TKR. This patient has experienced a >3g/dl drop in Hgb since surgery. In your clinical opinion is this patient being managed for: ( ) Acute blood loss anemia ( ) Other explanation of clinical findings (Please Explain) ( ) Unable to determine (Please Define) ( ) Need to Discuss ( ) Not Agree The medical record reflects the following clinical findings, treatment, and risk factors. Clinical Indicators: Hgb 8.6, Hct 27.4, relative hypotension (BP 100's/60's) Treatment: daily CBC, IVF's, medical consult, Risk Factors: Age, major orthopedic surgery Please clarify and document your clinical opinion in the progress notes and discharge summary. Terms such as "probable", "suspected", "likely", "questionable", "possible", or "still to be ruled out" are acceptable. IF IN AGREEMENT, YOU MUST DOCUMENT ABOVE DIAGNOSTIC STATEMENT IN DAILY PROGRESS NOTES AND DISCHARGE SUMMARY. This document is not part of the patient's record. Thank You, Shashank Boateng, RN [phone]
--- NOTE | 2017-01-03 08:40 | Clinical Documentation Query ---
CLINICAL DOCUMENTATION QUERY 76-y/o female who has undergone cemented right TKR. This patient has experienced a >3g/dl drop in Hgb since surgery. In your clinical opinion is this patient being managed for: ( x ) Acute blood loss anemia ( ) Other explanation of clinical findings (Please Explain) ( ) Unable to determine (Please Define) ( ) Need to Discuss ( ) Not Agree The medical record reflects the following clinical findings, treatment, and risk factors. Clinical Indicators: Hgb 8.6, Hct 27.4, relative hypotension (BP 100's/60's) Treatment: daily CBC, IVF's, medical consult, Risk Factors: Age, major orthopedic surgery Please clarify and document your clinical opinion in the progress notes and discharge summary. Terms such as "probable", "suspected", "likely", "questionable", "possible", or "still to be ruled out" are acceptable. IF IN AGREEMENT, YOU MUST DOCUMENT ABOVE DIAGNOSTIC STATEMENT IN DAILY PROGRESS NOTES AND DISCHARGE SUMMARY. This document is not part of the patient's record. Thank You, Shashank Boateng, RN [phone]
[2017-01-03] MEDS: HYDROCHLOROTHIAZIDE 25 MG TAB PO SCH (08:57)
[2017-01-03] MEDS: METOPROLOL SUCC 25MG EXT REL TAB PO SCH (08:57)
[2017-01-03] MEDS: CYANOCOBALAMIN 500 MCG TAB (VIT B-12) PO SCH (08:58)
[2017-01-03] MEDS: MULTIVITAMIN TAB PO SCH (08:58)
[2017-01-03] MEDS: LACTOBACILLUS ACIDOPHILUS (FLORANEX) TAB PO SCH (08:58)
[2017-01-03] MEDS: LISINOPRIL 40 MG TAB PO SCH (08:58)
[2017-01-03] MEDS: CHOLECALCIFEROL 1000 INTER.UNIT TAB PO SCH (08:58)
[2017-01-03] MEDS: VENLAFAXINE HCL XR 75 MG CAPXR PO SCH (08:58)
[2017-01-03] MEDS: PANTOprazole SOD 40 MG TAB PO SCH (08:58)
[2017-01-03] MEDS: ASPIRIN 81 MG ECTAB PO SCH ×2 (08:59→20:45)
[2017-01-03] MEDS: DOCUSATE SODIUM 100 MG CAP PO SCH ×2 (08:59→20:45)
[2017-01-03] MEDS ORDERED: LACTASE 3000 UNIT TAB PO PRN (09:00)
[2017-01-03] MEDS: OXYCODONE HCL 10 MG TABCR (OXYCONTIN) PO SCH ×3 (09:00→20:46)
[2017-01-03] MEDS: ONDANSETRON INJ 2 MG/ML 2 ML VIAL IV PRN ×2 (09:06→09:08)
[2017-01-03 10:25] VITALS: BP 122/72
--- NOTE | 2017-01-03 10:28 | Family Medicine Progress Note ---
Progress Note Date of Service Jan 03, 2017. Subjective Pt evaluation today including: conversation w/ patient The patient was seen and examined at bedside. No acute overnight events. s/o R TKR yesterday. Pt usually takes 0.5mg PRN daily for anxiety - she takes approximately 3-4 pills per week. She got a does yesterday evening and again at 3am per night resident. Patient is resting comfortably in bed. She is up and sitting to bedside. She denies any pain in her knee or extremities. She has a drain from the knee draining sangiounous fluid. ASA 81mg BID has been started for DVT prophylaxis. Eating and urinating well. Plan of care was described to the patient and all questions were answered. Constitutional: No fever, No chills, No sweats, No weight loss ENT: No hearing loss Respiratory: No cough, No sputum, No wheezing, No shortness of breath, No dyspnea on exertion Cardiovascular: No chest pain Abdomen: No pain, No nausea, No vomiting, No diarrhea Female : No dysuria, No hematuria Objective Physical Exam General Appearance: WD/WN, no apparent distress Respiratory/Chest: chest non-tender, lungs clear, normal breath sounds, no respiratory distress, no accessory muscle use Cardiovascular: regular rate, rhythm, no edema, no gallop, no JVD, no murmur Abdomen: normal bowel sounds, non tender, soft, no organomegaly, no pulsatile mass Extremities: normal range of motion, non-tender, no pedal edema, no calf tenderness, + pertinent finding (dressing on right knee- defer to surgeon for daily wound checks, knee non tender, FROM, pt is ambulating with the assistance of a walker slowly. ) Neurologic/Psychiatric: alert, normal mood/affect, oriented x 3 Skin: no rash Assessment and Plan 76F with a PMHx of HTN, anxiety and ruptured aortic aneurysm s/p R Total Knee Replacement, Post Op Day #1. Total Knee Replacement Pt is already ambulating to chair with walker. Wound care per primary surgeon. (Dr. Najera) PT and OT on board. Pain control with: * Tylenol 1g TID PRN. * Ultram Q4PRN * Oxycodone 5mg Q4H PO PRHN or Oxycodone 10mg BID PRN * Morphine 2mg vs 4mg IV Q4PRN Acute Blood Loss Anemia Hgb 12.3-->8.6 IVF will end this afternoon. Resuming diet. Resuming home Vit B12. Will monitor with daily CBCs. Hypertension MAP in the 80s this morning. Will resume home HTN meds - * HCTZ 12.5mg daily * Lisinopril 40mg daily. Continue to monitor. Anxiety Continue home Ativan 0.5mg PRN daily Continue Venlafaxine 150mg QAM. Will add on 0.5mg PO PRN QHS for anxiety. Will monitor usage. Hypothyroid Resume home dose of Synthroid 112mcg daily. H/o ruptured Aortic Aneurysm ASA has been increased to 81mg BID per primary team, home dose is 81mg daily. Continue home med Toprol XL 25mg QAM. Continue zocor 20mg daily Asthma/COPD documented history Albuterol 2puffs Q4H PRN for SOB GERD: PPI 40mg daily. DVT Prophylaxis: ASA as above and early ambulation, PT and OT on board. Constipation: Docusate 100mg BID FULL CODE Resident Involvement: Resident Care Provided Care Provided: Adult Hospital Medicine Reviewed: Pt Seen/Exam by Me History no new concerns Constitutional: denies: fever Respiratory: negative: short of breath Cardiovascular: denies chest pain Gastrointestinal/Abdominal: negative: abdominal pain General Appearance: no apparent distress Respiratory: lungs clear, no respiratory distress Cardiovascular: regular rate, rhythm Extremities: other (right knee dressing +) Neurologic/Psychiatric: alert, oriented x 3 Skin Characteristics: warm/dry Assessment/Plan Resident Physician Supervision Note: I was present with Dr. De Dios in bedside. I verified the samano history and physical, reviewed labs and image studies, discussed the case with the resident and agree with the findings and care plan.
[2017-01-03 11:08] VITALS: BP 133/72; PULSE 84; TEMP 36.6; O2SAT 96
[2017-01-03 15:10] VITALS: BP 129/82; PULSE 85; TEMP 36.7; O2SAT 92
[2017-01-03] MEDS ORDERED: LORAZEPAM 0.5 MG TAB PO PRN (18:00)
[2017-01-03] MEDS: SIMVASTATIN 20 MG TAB PO SCH (21:14)
[2017-01-03 22:57] VITALS: BP 119/72; PULSE 79; TEMP 36.7; O2SAT 92
[2017-01-04] MEDS: OXYCODONE HCL IR 5 MG TAB (IMMEDIATE RELEASE) PO PRN ×2 (03:56→13:56)
[2017-01-04] MEDS: ONDANSETRON INJ 2 MG/ML 2 ML VIAL IV PRN ×2 (05:25→15:11)
[2017-01-04 06:01] LABS: HEMATOCRIT 28.5 % (37-47); MEAN CELL VOLUME 93.8 fL (80-100); MEAN CORPUSCULAR HEMOGLOBIN 29.9 pg (25-34); MEAN CORPUSCULAR HGB CONC 31.9 g/dl (32-36); MEAN PLATELET VOLUME 9.7 fL (7.4-10.4); PLATELET COUNT 178 K/uL (130-400); RED BLOOD COUNT 3.04 M/uL (4.2-5.4); WHITE BLOOD COUNT 6.78 K/uL (4.8-10.8)
[2017-01-04] MEDS: LEVOTHYROXINE 112 MCG TAB PO SCH (06:22)
[2017-01-04] MEDS: ACETAMINOPHEN 500 MG TAB PO SCH ×3 (06:23→21:26)
[2017-01-04 06:43] LABS: BUN/CREATININE RATIO 27.8 (10-20); CALCIUM 8.6 mg/dl (8.5-10.1); CREATININE 0.98 mg/dl (0.60-1.20); POTASSIUM 4.2 mmol/L (3.5-5.1)
[2017-01-04 07:12] VITALS: BP 109/63; PULSE 77; TEMP 36.6; O2SAT 92
--- NOTE | 2017-01-04 07:53 | Orthopedic Progress Note ---
Orthopedic Progress Note Date of Service Jan 04, 2017. Subjective Post OP Day: 2 Reports: pain controlled w PO medications, Denies: chest pain, SOB, nausea / vomiting, light headedness, calf pain Additional Notes: Patient states she is feeling more tired today, did fair in PT, 100 ft, yesterday. Had some wheezing per therapist's note, is now on 2L of O2. Hgb 9.1, BP stable. Objective calves soft nontender, N/V intact, capillary refill less than 2 sec., dressing C /D/I, A&O x3, toes mobile Prevena in tact. Date Time Temp Pulse Resp B/P (MAP) Pulse Ox O2 Delivery O2 Flow Rate FiO2 01/04/17 07:12 36.6 77 19 109/63 (78) 92 Nasal Cannula 2.0 01/03/17 23:20 Room Air 01/03/17 22:57 36.7 79 16 119/72 (88) 92 Room Air 01/03/17 15:20 Room Air 01/03/17 15:10 36.7 85 18 129/82 (98) 92 Room Air 01/03/17 11:08 36.6 84 17 133/72 (92) 96 Room Air 01/03/17 10:25 122/72 (89) Laboratory Results 24 Hours: Test 01/04/17 05:39 Hematocrit 28.5 % Hemoglobin 9.1 g/dL Assessment & Plan Assessment: POD #2, Rt TKA Plan: PT/ OT DVT proph- ASA D/C plans- OPPT likely Saturday. As per medicine Monitor O2 sats and advance PT today. Inhouse Planning Pain Management: Oxycontin, Morphine, PO Tylenol, Oxy IR DVT Prophylaxis: TEDs, SCDs, ASA Discharge Planning Discharge Planning: home with oppt Pain Management: Oxycontin, PO Tylenol, Oxy IR DVT Prophylaxis: TEDs, ASA Therapy: Physical Therapy, Occupational Therapy
--- NOTE | 2017-01-04 07:56 | Discharge Instructions ---
Discharge Instructions Date of Service Jan 04, 2017. Admission Reason for Admission: Right Knee Degenerative Joint Disease Discharge Discharge Diagnosis / Problem: Right TKA Discharge Goals Goal(s): Improve function Activity Recommendations Activity Limitations: as noted below . Instructions / Follow-Up Instructions / Follow-Up ACTIVITY RECOMMENDATIONS: SELF CARE INSTRUCTIONS AFTER TOTAL KNEE REPLACEMENT A. You may need to continue a physical therapy program after discharge from the hospital. There are several options available to you. Your doctor will assist you in selecting the best one for you. 1. An out-patient facility 2 to 3 times a week for therapy or home therapy. 2. Continue working on all exercises taught to you in the hospital. Your goals should be to increase bending of your knee to 90 degrees and beyond and to fully straighten your knee. B. You may progress at your own pace from walking with a walker or crutches to a cane; then to no assistive devices. C. Make walking a part of your daily routine. Be up as much as comfortable with rest periods throughout the day. Rest with leg elevation is very important. Use the ice wrap frequently for the first 3-4 weeks. D. There are no restrictions on activities. You may ride in a car, shop, participate in supervisor paper machine and all social activities. E. Wear the long elastic stockings (FERNANDO hose) 20 hours a day for 2 weeks after surgery. They can be removed several times a day for laundering and for a bath. F. You may shower, no tub baths until cleared by your doctor. SPECIAL CARE INSTRUCTIONS: VERY IMPORTANT TO READ AND REVIEW A. There are a few signs you need to watch for after you are home. Call [facility] if you notice any of the followin. Increased severe knee pain. Some pain is expected especially when you exercise. 2. Increased swelling in your leg or knee; pain or swelling of the calf muscle in either lower leg. 3. Any fluid drainage from the incision. 4. Shortness of breath or chest pain. B. Please call [facility] at if you have any concerns or questions about your operation or recovery. The doctor or his nurse will return your call promptly. C. You must take antibiotics before dental work, bladder, bowel or other surgery. Your doctor will provide you with a permanent care to carry describing this precaution. IMPORTANT: * REMEMBER TO TAKE ASPIRIN, 81 MG, TWICE DAILY FOR 4 WEEKS UNLESS OTHERWISE DIRECTED. THIS IS YOUR BLOOD THINNER. * HIGH RISK PATIENTS MAY BE PRESCRIBED A STRONGER BLOOD THINNER. THIS WILL BE PROVIDED AT DISCHARGE. * CALL IF INCREASED PAIN, REDNESS, DRAINAGE OR FEVER GREATER THAT 101. * WEAR FERNANDO HOSE 20 HOURS PER DAY FOR 2 WEEKS. * YOU MAY HAVE A LARGE BAND-AID LIKE DRESSING (SILVERON). THIS WILL REMAIN ON YOUR INCISION FOR 7 DAYS, THEN CAN BE REMOVED. IF INCISION IS LEAKING THROUGH DRESSING, CALL THE OFFICE . FOLLOW UP VISIT: If appointment is not already scheduled: Please call [facility] to make a follow-up appointment for 2 weeks after your surgery at . YOU HAVE A WOUND VAC ON YOUR INCISION, REMOVE AND DISCARD ALL PARTS 1 WEEK AFTER SURGERY AND REPLACE WITH STERILE DRESSINGS DAILY UNTIL FOLLOW UP IN OFFICE. Current Hospital Diet Patient's current hospital diet: Regular Diet Discharge Diet Recommended Diet: Regular Diet Procedures Procedures Performed: Right Total Knee Arthroplasty Pending Studies Studies pending at discharge: no Laboratory Results Hemoglobin A1c Test 12/25/16 14:08 Range/Units Estimated Average Glucose 126 mg/dl Hemoglobin A1c 6.0 H 4.5-5.6 % Medical Emergencies . Who to Call and When: Medical Emergencies: If at any time you feel your situation is an emergency, please call 911 immediately. . Non-Emergent Contact Non-Emergency issues call your: Primary Care Provider . "Provider Documentation" section prepared by Aidan Jimenez. . VTE Core Measure Inpt VTE Proph given/why not?: Other Anticoagulation ( ASA), T.E.Baldemar Worrell, SCD's [place] Drug Monitoring Program Search Results: patient reviewed within database, no issues identified
[2017-01-04] MEDS: METOPROLOL SUCC 25MG EXT REL TAB PO SCH (09:22)
[2017-01-04] MEDS: VENLAFAXINE HCL XR 75 MG CAPXR PO SCH (09:22)
[2017-01-04] MEDS: LACTOBACILLUS ACIDOPHILUS (FLORANEX) TAB PO SCH (09:22)
[2017-01-04] MEDS: OXYCODONE HCL 10 MG TABCR (OXYCONTIN) PO SCH ×2 (09:22→21:22)
[2017-01-04] MEDS: PANTOprazole SOD 40 MG TAB PO SCH (09:22)
[2017-01-04] MEDS: CHOLECALCIFEROL 1000 INTER.UNIT TAB PO SCH (09:23)
[2017-01-04] MEDS: CYANOCOBALAMIN 500 MCG TAB (VIT B-12) PO SCH (09:23)
[2017-01-04] MEDS: MULTIVITAMIN TAB PO SCH (09:23)
[2017-01-04] MEDS: HYDROCHLOROTHIAZIDE 25 MG TAB PO SCH (09:23)
[2017-01-04] MEDS: LISINOPRIL 40 MG TAB PO SCH (09:24)
[2017-01-04] MEDS: DOCUSATE SODIUM 100 MG CAP PO SCH ×2 (10:02→21:21)
[2017-01-04] MEDS: ASPIRIN 81 MG ECTAB PO SCH ×2 (10:02→21:21)
[2017-01-04 14:53] VITALS: BP 114/72; PULSE 87; TEMP 36.8; O2SAT 91
[2017-01-04] MEDS: SIMVASTATIN 20 MG TAB PO SCH (21:22)
[2017-01-04 23:04] VITALS: BP 98/61; PULSE 82; TEMP 36.7; O2SAT 93
[2017-01-05] MEDS: TRAMADOL HCL 50 MG TAB PO PRN (00:33)
[2017-01-05] MEDS: ACETAMINOPHEN 500 MG TAB PO SCH (05:37)
[2017-01-05] MEDS: LEVOTHYROXINE 112 MCG TAB PO SCH (05:37)
[2017-01-05 06:04] VITALS: BP 130/71; PULSE 97
[2017-01-05 06:27] LABS: HEMATOCRIT 29.1 % (37-47); MEAN CELL VOLUME 94.5 fL (80-100); MEAN CORPUSCULAR HEMOGLOBIN 29.5 pg (25-34); MEAN CORPUSCULAR HGB CONC 31.3 g/dl (32-36); MEAN PLATELET VOLUME 9.9 fL (7.4-10.4); PLATELET COUNT 199 K/uL (130-400); RED BLOOD COUNT 3.08 M/uL (4.2-5.4); WHITE BLOOD COUNT 5.82 K/uL (4.8-10.8)
[2017-01-05 07:01] LABS: BUN/CREATININE RATIO 23.7 (10-20); CALCIUM 8.8 mg/dl (8.5-10.1); POTASSIUM 4.2 mmol/L (3.5-5.1)
[2017-01-05 07:37] VITALS: BP 124/72; PULSE 83; TEMP 36.8; O2SAT 91
[2017-01-05] MEDS: DOCUSATE SODIUM 100 MG CAP PO SCH (08:29)
[2017-01-05] MEDS: VENLAFAXINE HCL XR 75 MG CAPXR PO SCH (08:32)
[2017-01-05] MEDS: METOPROLOL SUCC 25MG EXT REL TAB PO SCH (08:32)
[2017-01-05] MEDS: MULTIVITAMIN TAB PO SCH (08:32)
[2017-01-05] MEDS: ASPIRIN 81 MG ECTAB PO SCH (08:32)
[2017-01-05] MEDS: LISINOPRIL 40 MG TAB PO SCH (08:32)
[2017-01-05] MEDS: PANTOprazole SOD 40 MG TAB PO SCH (08:32)
[2017-01-05] MEDS: CHOLECALCIFEROL 1000 INTER.UNIT TAB PO SCH (08:32)
[2017-01-05] MEDS: LACTOBACILLUS ACIDOPHILUS (FLORANEX) TAB PO SCH (08:33)
[2017-01-05] MEDS: HYDROCHLOROTHIAZIDE 25 MG TAB PO SCH (08:33)
[2017-01-05] MEDS: CYANOCOBALAMIN 500 MCG TAB (VIT B-12) PO SCH (08:33)
--- NOTE | 2017-01-05 08:34 | Progress Note ---
Orthopedic SOAP Note Subjective Date of Service: Jan 05, 2017. Reports: feeling well, pain controlled w PO medications Additional Notes: no further wheezing Problem List Medical Problems: (1) Degenerative joint disease Status: Acute (2) Fractured fibula Status: Acute (3) Toe fracture Status: Acute Objective calves soft nontender, N/V intact, dressing C/D/I, CMS intact wound vac intact and functioning,ecchymosis and mild to moderate swelling Date Time Temp Pulse Resp B/P (MAP) Pulse Ox O2 Delivery O2 Flow Rate FiO2 01/05/17 07:37 36.8 83 16 124/72 (89) 91 Room Air 01/05/17 06:04 97 130/71 (90) 01/05/17 00:19 Room Air 01/04/17 23:04 36.7 82 17 98/61 (73) 93 Room Air 01/04/17 16:00 Room Air 01/04/17 14:53 36.8 87 20 114/72 (86) 91 Room Air Laboratory Results 24 Hours: Test 01/05/17 06:12 Hematocrit 29.1 % Hemoglobin 9.1 g/dL Assessment POD #3, Rt TKA Plan PT/ OT DVT proph- ASA D/C plans home today after evaluated by medicine As per medicine
[2017-01-05] MEDS: OXYCODONE HCL 10 MG TABCR (OXYCONTIN) PO SCH (08:37)
[2017-01-05] MEDS ORDERED: ASPEC81 PO (08:45)
[2017-01-05] MEDS ORDERED: OXYSR10 PO (08:45)
[2017-01-05] MEDS ORDERED: ACET-24 PO (08:45)
[2017-01-05] MEDS ORDERED: RXC5 PO (08:45)
[2017-01-05] MEDS ORDERED: ONDA8TAB6 PO (08:45)
--- NOTE | 2017-01-05 10:23 | Progress Note ---
Subjective Date of Service: Jan 05, 2017. Subjective Pt evaluation today including: conversation w/ patient, physical exam, chart review, lab review, conversation w/ compliance consultant, review of inpatient medication list feeling ok. mildly lightheaded when getting up and walking but nothign that's really bothering her, feels like she'd be safe at home no wheezing no sob Problem List Medical Problems: (1) Degenerative joint disease Status: Acute (2) Fractured fibula Status: Acute (3) Toe fracture Status: Acute Review of Systems all other ROS otherwise negative except for as above Objective Vital Signs Date Time Temp Pulse Resp B/P (MAP) Pulse Ox O2 Delivery O2 Flow Rate FiO2 01/05/17 08:30 Room Air 01/05/17 07:37 36.8 83 16 124/72 (89) 91 Room Air 01/05/17 06:04 97 130/71 (90) 01/05/17 00:19 Room Air 01/04/17 23:04 36.7 82 17 98/61 (73) 93 Room Air 01/04/17 16:00 Room Air 01/04/17 14:53 36.8 87 20 114/72 (86) 91 Room Air Physical Exam General Appearance: no apparent distress Eyes: EOMI ENT: hearing grossly normal Neck: trachea midline Respiratory/Chest: lungs clear, normal breath sounds, no respiratory distress, no accessory muscle use Skin: normal color, warm/dry (no pallor) Laboratory Results Last 24 Hours Test 01/05/17 06:12 White Blood Count 5.82 K/uL Red Blood Count 3.08 M/uL Hemoglobin 9.1 g/dL Hematocrit 29.1 % Mean Corpuscular Volume 94.5 fL Mean Corpuscular Hemoglobin 29.5 pg Mean Corpuscular Hemoglobin Concent 31.3 g/dl RDW Standard Deviation 49.6 fL RDW Coefficient of Variation 14.4 % Platelet Count 199 K/uL Mean Platelet Volume 9.9 fL Sodium Level 138 mmol/L Potassium Level 4.2 mmol/L Chloride Level 107 mmol/L Carbon Dioxide Level 26 mmol/L Anion Gap 5.0 mmol/L Blood Urea Nitrogen 24 mg/dl Creatinine 1.00 mg/dl Est Creatinine Clear Calc Drug Dose 51.0 ml/min Estimated GFR () 62.5 Estimated GFR (Non- 53.9 BUN/Creatinine Ratio 23.7 Random Glucose 107 mg/dl Calcium Level 8.8 mg/dl Assessment and Plan s/p Total Knee Replacement -per orthopedics. medically appearing stable for discharge Acute Blood Loss Anemia -minimal sx. Hgb now stable. discussed - best balance of risks / benefits at this time is to just be mindful of orthostasis, anticipate resolution, f/u PCP this week and have f/u CBC later this week -no indications for transfusion Hypertension -due to aneurysm will need to maintain more aggressive treatment - mild orthostasis but she's aware and OK w being careful w sx. keep meds "as is" due to risks/benefits and need for tighter control -caution when transitioning, otherwise OK to home on current regimen, PCP f/u this week (and CBC this week as above) Anxiety Continue home Ativan 0.5mg PRN daily Continue Venlafaxine 150mg QAM. Will add on 0.5mg PO PRN QHS for anxiety. Will monitor usage. Hypothyroid Resume home dose of Synthroid 112mcg daily. H/o ruptured Aortic Aneurysm ASA has been increased to 81mg BID per primary team, home dose is 81mg daily. Continue home med Toprol XL 25mg QAM. Continue zocor 20mg daily see above otherwise Asthma/COPD documented history Albuterol 2puffs Q4H PRN for SOB no wheezing today GERD: PPI 40mg daily. DVT Prophylaxis: ASA as above and early ambulation, PT and OT on board. Constipation: Docusate 100mg BID
[2017-01-05 10:54] VITALS: BP 124/72; PULSE 83; TEMP 36.8; O2SAT 91
[2017-01-05] MEDS: OXYCODONE HCL IR 5 MG TAB (IMMEDIATE RELEASE) PO PRN (14:01)
--- NOTE | 2017-01-18 11:51 | DISCHARGE SUMMARY ---
This is a 76-year-old female patient of Dr. Najera, is complaining of chronic right knee pain, longstanding, now progressively getting worse. The patient was diagnosed with end-stage osteoarthritis per clinical and radiographic exams and wishes to proceed with a right total knee arthroplasty. PAST MEDICAL HISTORY: Irregular heartbeat, history of an aneurysm, osteoarthritis, and dentures. POSTOPERATIVE COURSE: The patient underwent a right total knee arthroplasty on 01/02/2017. She was followed closely with medical consultation, DVT prophylaxis in the form of aspirin, physical therapy and pain control. She was a little slow on postop day #1 with her physical therapy and ambulation but at the time of discharge, she was ambulating well independently. Otherwise, the patient had an uneventful postoperative course and did well. PHYSICAL EXAMINATION: On discharge, right knee was with no redness or drainage. She had no calf tenderness. Negative Homans sign. Neurologically and neurovascularly she is intact in her right lower extremity. DIAGNOSIS: Status post right total knee arthroplasty. She has a history of irregular heartbeat, aneurysm, osteoarthritis, and dentures. PLAN: The patient was discharged home with home health services. She will remain on aspirin 81 mg twice daily for DVT prophylaxis. She will continue her preadmission medications as well with the addition of pain control. The patient will follow up with Dr. Najera as scheduled as an outpatient.
== END 2017-01-05 14:09 | disposition home health service (06) | DRG 470 ==
LOC: C.ACU 08:40 → C.3E 10:15 → ENRESERV 14:44
PROVIDERS: ADMIT Orthopaedic Surgery Sports Medicine; ATTEND Orthopaedic Surgery Sports Medicine
PROC: 0SRC0J9 Replacement of Right Knee Joint with Synthetic Substitute, Cemented, Open Approach (ICD-10-PCS; principal; 2017-01-02 10:30)
DX: M17.11 Unilateral primary osteoarthritis, right knee (principal); D62 Acute posthemorrhagic anemia; F41.9 Anxiety disorder, unspecified; I10 Essential (primary) hypertension; E03.9 Hypothyroidism, unspecified; K59.00 Constipation, unspecified; K21.9 Gastro-esophageal reflux disease without esophagitis; J44.9 Chronic obstructive pulmonary disease, unspecified; Z79.82 Long term (current) use of aspirin; Z79.899 Other long term (current) drug therapy; Z87.891 Personal history of nicotine dependence

== ENCOUNTER → 2017-03-04 | Outpatient (CLI) | payer OTHER, BC ==
[~2017-03-04] MED LIST changes: +ACET-24 PO; -ACETAMINOPHEN 500 MG TAB PO SCH; +ASPEC81 PO; -ATROPINE SULFATE 0.1 MG/ML 5ML SYR IV PRN; -BUPIVACAINE 0.25% 30 ML VIAL ONE; -BUPIVACAINE 0.5 % 5 MG/1 ML PF 10ML VIAL ONE; -CEFAZOLIN 2000 MG/60 ML D5W 60 ML IV SCH; -CeleBREX 200 MG CAP PO SCH; -DEXAMETHASONE 4 MG TAB PO SCH; -EpHEDrine SULFATE INJ 50 MG/ML AMP IV PRN; -FAMOTIDINE 20 MG TAB PO SCH; -GABAPENTIN 300 MG CAP PO SCH; -IBUP-1050 PO; -LACTATED RINGER'S 1000ML 1,000 ML IV SCH; -LACTATED RINGER'S 1000ML 500 ML IV ONE; -LACTATED RINGER'S 1000ML IV SCH; -METOCLOPRAMIDE HCL 10 MG TAB PO SCH; +ONDA8TAB6 PO; -OXYC-643 PO; +OXYSR10 PO; -ROPIVACAINE 5MG/ML 30 ML 150 MG, BUPIVACAINE/EPINEPHR 0.5% MPF 30 ML, KETOROLAC TROMETH... INFIL SCH; +RXC5 PO
[2017-03-04 17:52] LABS: BASO % 0.6 %; BASO ABS # 0.04 K/uL (0-0.2); COMPLETE YES; HEMATOCRIT 34.9 % (37-47); IG% 0.3 %; LYMPH % 27.2 %; LYMPH ABS # 1.79 K/uL (1.2-3.4); MEAN CELL VOLUME 90.2 fL (80-100); MEAN CORPUSCULAR HEMOGLOBIN 28.9 pg (25-34); MEAN CORPUSCULAR HGB CONC 32.1 g/dl (32-36); MEAN PLATELET VOLUME 9.6 fL (7.4-10.4); MONO % 5.2 %; NEUT % 64.7 %; PLATELET COUNT 219 K/uL (130-400); RED BLOOD COUNT 3.87 M/uL (4.2-5.4); WHITE BLOOD COUNT 6.57 K/uL (4.8-10.8)
[2017-03-04 18:16] LABS: ALT/SGPT 21 U/L (12-78); AST/SGOT 19 U/L (15-37); BLOOD UREA NITROGEN 22 mg/dl (7-18); BUN/CREATININE RATIO 23.6 (10-20); CALCIUM 9.6 mg/dl (8.5-10.1); CARBON DIOXIDE 25 mmol/L (21-32); CHLORIDE 103 mmol/L (98-107); CHOLESTEROL 195 mg/dl (0-200); CREATININE 0.92 mg/dl (0.60-1.20); GLUCOSE 94 mg/dl (70-99); SODIUM 137 mmol/L (136-145)
[2017-03-04 18:29] LABS: ALB/GLOB RATIO 1.1 (0.9-2); ALKALINE PHOSPHATASE 52 U/L (45-117); CHOLESTEROL/HDL RATIO 3.4; HDL CHOLESTEROL 58 mg/dl; LDL CHOLESTEROL CALCULATED 94 mg/dl; THYROID STIMULATING HORMONE 0.953 uIu/ml (0.300-4.500); TRIGLYCERIDES 217 mg/dl (0-150); VERY LOW DENSITY LIPOPROT CALC 43 mg/dl
== END | disposition home or self-care (01) ==
LOC: C.LAB 17:12
PROVIDERS: ATTEND Surgery Vascular Surgery
DX: E03.9 Hypothyroidism, unspecified (principal); I10 Essential (primary) hypertension; E78.5 Hyperlipidemia, unspecified; D64.9 Anemia, unspecified; R73.9 Hyperglycemia, unspecified; D47.2 Monoclonal gammopathy

== ENCOUNTER → 2017-03-20 | Outpatient (CLI) | payer OTHER, BC ==
--- NOTE | 2017-03-21 07:48 | MAMMOGRAPHY REPORT ---
BILATERAL DIGITAL SCREENING MAMMOGRAM TOMOSYNTHESIS WITH CAD: 03/20/2017 CLINICAL HISTORY: Routine screening. Patient has no complaints. TECHNIQUE: Breast tomosynthesis in addition to standard 2D mammography was performed. Current study was also evaluated with a Computer Aided Detection (CAD) system. COMPARISON: Comparison is made to exams dated: 03/19/2016 mammogram, 02/22/2015 mammogram, 01/08/2014 m ammogram, 01/06/2013 mammogram, 01/01/2012 mammogram, and 01/18/2011 ultrasound - [facility] enter. BREAST COMPOSITION: The tissue of both breasts is heterogeneously dense, which may obscure small mas ses. FINDINGS: The parenchymal pattern is similar to prior mammograms. No developing mass, architectural distortion or cluster of suspicious microcalcifications is seen in either breast. IMPRESSION: ACR BI-RADS CATEGORY 2: BENIGN There is no mammographic evidence of malignancy. A 1 year screening mammogram is recommended. The pa tient will receive written notification of the results. Approximately 10% of breast cancers are not detected with mammography. A negative mammographic report should not delay biopsy if a clinically suggestive mass is present. Tabatha Rivas M.D. ay/:03/20/2017 15:15:57 Mail Messenger Contractor: Yina Torres, [facility] letter sent: Normal 1/2 BI-RADS Code: ACR BI-RADS Category 2: Benign
== END | disposition home or self-care (01) ==
LOC: C.MAMM 14:34
PROVIDERS: ATTEND Internal Medicine Geriatric Medicine
DX: Z12.31 Encounter for screening mammogram for malignant neoplasm of breast (principal)